=== PATIENT | female | born 1970 | race Two or more races ===

== ENCOUNTER 2016-08-21 13:33 | Inpatient (IN) | payer OTHER ==
[2016-08-21 14:33] LABS: Urine Bacteria Absent (Absent); Urine Bilirubin Negative (Negative); Urine Glucose Negative (Negative); Urine Nitrite Negative (Negative)
[2016-08-21 14:38] LABS: Benzodiazepine Urine Screen None Detected (None Detect)
[2016-08-21] MEDS ORDERED: Gabapentin CAP(*) 300 MG PO ONE (14:57)
[2016-08-21 15:07] LABS: Hematocrit 39 % (35-47); Hemoglobin 12.7 g/dl (12.0-16.0); Mean Corpuscular HGB Conc 33 g/dl (31-36); Mean Corpuscular Hemoglobin 27 pg (27-31); Mean Corpuscular Volume 84 fL (80-97); Mean Platelet Volume 9 um3 (7.4-10.4); Red Blood Count 4.62 10^6/ul (4.0-5.4); Red Cell Distribution Width 15 % (10.5-15); White Blood Count 7.7 10^3/ul (3.5-10.8)
[2016-08-21 15:18] LABS: ALT 8 U/L (7-52); AST 13 U/L (13-39); Albumin 4.2 g/dL (3.2-5.2); Alkaline Phosphatase 82 U/L (34-104); Anion Gap 8 mmol/L (2-11); Blood Urea Nitrogen 9 mg/dL (6-24); CO2 Carbon Dioxide 28 mmol/L (22-32); Calcium 9.1 mg/dL (8.6-10.3); Chloride 101 mmol/L (101-111); EGFR Non-African American 75.4 (>60); Glucose 127 mg/dL (70-100); Potassium 3.1 mmol/L (3.5-5.0); Sodium 137 mmol/L (133-145); Total Protein 7.2 g/dL (6.4-8.9)
[2016-08-21 16:08] LABS: Acetaminophen < 15 mcg/mL; Alcohol < 10 mg/dL (<10); Salicylate < 2.50 mg/dL (<30)
[2016-08-21 16:10] LABS: TSH (Thyroid Stimulating Horm) 0.56 mcIU/mL (0.34-5.60)
[2016-08-21] MEDS ORDERED: Potassium Chlor TAB* 20 MEQ TAB.ER PO ONE ×2 (16:50→21:00)
[2016-08-21] MEDS ORDERED: Al Hydrox/Mg Hydrox/Simet LIQ* 30 ML UDC PO PRN (17:09)
--- NOTE | 2016-08-21 18:19 | ED ---
Tavon Wynn Aidan, scribed for Bony Soriano MD on 08/21/16 at 1412 . Psychiatric Complaint - HPI Summary HPI Summary: 46 y/o female presents to the ED with a complaint of acute, moderate episodes of visual and auditory hallucinations that began 2 weeks ago. She has intermittent episodes of hearing and seeing a man who tells her to cut herself in very specific ways. Additionally, she sees and hears a small crying girl. Associated symptoms include SI and razor cuts to the face that were self- induced. She denies any HI and claims to be taking her medications regularly. Several months ago, she lost her job and recently has had several deaths in her family. 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 Denies: With A Plan, Demonstrates Gesture, Has Prior Attempt(s) Has Homicidal: Denies: Thoughts, With A Plan, Demonstrates Gesture, Has Prior Attempt(s) Recent Stressor(s): lost job and recent family loss - Allergies/Home Medications Allergies/Adverse Reactions: Allergies Allergy/AdvReac Type Severity Reaction Status Date / Time Penicillins Allergy Severe throat Verified 06/27/15 20:11 swells up PMH/Surg Hx/FS Hx/Imm Hx Endocrine/Hematology History: Denies: Hx Anticoagulant Therapy, Hx Diabetes, Hx Thyroid Disease Cardiovascular History: Reports: Hx Hypercholesterolemia Denies: Hx Hypertension, Hx Pacemaker/ICD Respiratory History: Reports: Hx Asthma Denies: Hx Chronic Obstructive Pulmonary Disease (COPD) GI History: Reports: Other GI Disorders - UC in remission per patient History: Denies: Hx Renal Disease Musculoskeletal History: Reports: Hx 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, Other Musculoskeletal History - degenerative disease lower spine,sciatic, OSTEOPOROSIS Denies: Hx Scoliosis Sensory History: Reports: Hx Contacts or Glasses - glasses inst given Denies: Hx Hearing Aid Opthamlomology History: Reports: Hx Contacts or Glasses - glasses inst given Neurological History: Reports: Other Neuro Impairments/Disorders - h/o pituitary tumor Denies: Hx Dementia, Hx Headaches, Hx Seizures Psychiatric History: Reports: Hx Depression Denies: Hx Eating Disorder, Hx Panic Disorder, Hx of Violent Episodes Against Others, Hx Substance Abuse - Cancer History Cancer Type, Location and Year: chronic back pain, cholitis, osteoperosis - Surgical History Surgery Procedure, Year, and Place: 1996 TUBAL. 2000 PITUATARY GLAND MASS REMOVED [place]. 07/2012 LEFT SHOULDER SURGERY Hx Anesthesia Reactions: No Infectious Disease History: Denies: Hx Hepatitis, Hx Human Immunodeficiency Virus (HIV), Traveled Outside the in Last 30 Days - Family History Known Family History: Positive: Other - "my aunt committed suicide" - Social History Occupation: Employed Full-time Lives: Alone Alcohol Use: Weekly - 2-3 bottles of wine per week Hx Substance Use: No Substance Use Type: Reports: None Hx Tobacco Use: No Smoking Status (MU): Never Smoked Tobacco Review of Systems Constitutional: Negative Eyes: Negative ENT: Negative Cardiovascular: Negative Respiratory: Negative Gastrointestinal: Negative Genitourinary: Negative Musculoskeletal: Negative Skin: Negative Neurological: Other - hallucinations Negative: Headache, Weakness, Paresthesia, Numbness, Syncope, Slurred Speech Positive: Depressed. Negative: Anxious All Other Systems Reviewed And Are Negative: Yes Physical Exam - Summary Physical Exam Summary: VITAL SIGNS: Reviewed. GENERAL: Patient is a well-developed and nourished (FEMALE) who is lying comfortable in the stretcher. Patient is not in any acute respiratory distress. HEAD AND FACE: No signs of trauma. No ecchymosis, hematomas or skull depressions. No sinus tenderness. EYES: PERRLA, EOMI x 2, No injected conjunctiva, no nystagmus. EARS: Hearing grossly intact. Ear canals and tympanic membranes are within normal limits. MOUTH: Oropharynx within normal limits. NECK: Supple, trachea is midline, no adenopathy, no JVD, no carotid bruit, no c- spine tenderness, neck with full ROM. CHEST: Symmetric, no tenderness at palpation LUNGS: Clear to auscultation bilaterally. No wheezing or crackles. CVS: Regular rate and rhythm, S1 and S2 present, no murmurs or gallops appreciated. ABDOMEN: Soft, non-tender. No signs of distention. No rebound no guarding, and no masses palpated. Bowel sounds are normal. EXTREMITIES: FROM in all major joints, no edema, no cyanosis or clubbing. NEURO: Alert and oriented x 3. No acute neurological deficits. Speech is normal and follows commands. SKIN: Dry and warm PSYCH: Pt looks depressed. Triage Information Reviewed: Yes Vital Signs On Initial Exam: Initial Vitals Temp Pulse Resp BP Pulse Ox 97.8 F 126 20 120/93 98 08/21/16 13:36 08/21/16 13:36 08/21/16 13:36 08/21/16 13:36 08/21/16 13:36 Vital Signs Reviewed: Yes Diagnostics - Vital Signs Vital Signs Temp Pulse Resp BP Pulse Ox 08/21/16 13:36 97.8 F 126 20 120/93 98 - Laboratory Lab Results: Lab Results 08/21/16 08/21/16 08/21/16 Range/Units 14:00 14:01 14:49 WBC 7.7 (3.5-10.8) 10^3/ul RBC 4.62 (4.0-5.4) 10^6/ul Hgb 12.7 (12.0-16.0) g/dl Hct 39 (35-47) % MCV 84 (80-97) fL MCH 27 (27-31) pg MCHC 33 (31-36) g/dl RDW 15 (10.5-15) % Plt Count 234 (150-450) 10^3/ul MPV 9 (7.4-10.4) um3 Neut % (Auto) 80.8 (38-83) % Lymph % (Auto) 13.5 L (25-47) % Hawkins % (Auto) 3.7 (1-9) % Eos % (Auto) 1.7 (0-6) % Baso % (Auto) 0.3 (0-2) % Absolute Neuts (auto) 6.2 (1.5-7.7) 10^3/ul Absolute Lymphs (auto) 1.0 (1.0-4.8) 10^3/ul Absolute Monos (auto) 0.3 (0-0.8) 10^3/ul Absolute Eos (auto) 0.1 (0-0.6) 10^3/ul Absolute Basos (auto) 0 (0-0.2) 10^3/ul Absolute Nucleated RBC 0 10^3/ul Nucleated RBC % 0 Sodium (133-145) mmol/L Potassium (3.5-5.0) mmol/L Chloride (101-111) mmol/L Carbon Dioxide (22-32) mmol/L Anion Gap (2-11) mmol/L BUN (6-24) mg/dL Creatinine (0.51-0.95) mg/dL Est GFR ( Amer) (>60) Est GFR (Non-Af Amer) (>60) BUN/Creatinine Ratio (8-20) Glucose (70-100) mg/dL Calcium (8.6-10.3) mg/dL Total Bilirubin (0.2-1.0) mg/dL AST (13-39) U/L ALT (7-52) U/L Alkaline Phosphatase (34-104) U/L Total Protein (6.4-8.9) g/dL Albumin (3.2-5.2) g/dL Globulin (2-4) g/dL Albumin/Globulin Ratio (1-3) TSH (0.34-5.60) mcIU/mL Urine Color Yellow Urine Appearance Clear Urine pH 5.0 (5-9) Ur Specific [place] 1.010 (1.010-1.030) Urine Protein Negative (Negative) Urine Ketones Negative (Negative) Urine Blood Negative (Negative) Urine Nitrate Negative (Negative) Urine Bilirubin Negative (Negative) Urine Urobilinogen Negative (Negative) Ur Leukocyte Esterase 1+ H (Negative) Urine WBC (Auto) Trace(0-5/hpf) (Absent) Urine RBC (Auto) Absent (Absent) Ur Squamous Epith Cells Present H (Absent) Urine Bacteria Absent (Absent) Urine Glucose Negative (Negative) Urine Ascorbic Acid * H (Negative) Salicylates (<30) mg/dL Urine Opiates Screen None detected (None Detect) Acetaminophen mcg/mL Ur Barbiturates Screen None detected (None Detect) Ur Phencyclidine Scrn None detected (None Detect) Ur Amphetamines Screen None detected (None Detect) U Benzodiazepines Scrn None detected (None Detect) Urine Cocaine Screen None detected (None Detect) U Cannabinoids Screen None detected (None Detect) Serum Alcohol (<10) mg/dL 08/21/16 Range/Units 14:49 WBC (3.5-10.8) 10^3/ul RBC (4.0-5.4) 10^6/ul Hgb (12.0-16.0) g/dl Hct (35-47) % MCV (80-97) fL MCH (27-31) pg MCHC (31-36) g/dl RDW (10.5-15) % Plt Count (150-450) 10^3/ul MPV (7.4-10.4) um3 Neut % (Auto) (38-83) % Lymph % (Auto) (25-47) % Hawkins % (Auto) (1-9) % Eos % (Auto) (0-6) % Baso % (Auto) (0-2) % Absolute Neuts (auto) (1.5-7.7) 10^3/ul Absolute Lymphs (auto) (1.0-4.8) 10^3/ul Absolute Monos (auto) (0-0.8) 10^3/ul Absolute Eos (auto) (0-0.6) 10^3/ul Absolute Basos (auto) (0-0.2) 10^3/ul Absolute Nucleated RBC 10^3/ul Nucleated RBC % Sodium 137 (133-145) mmol/L Potassium 3.1 L (3.5-5.0) mmol/L Chloride 101 (101-111) mmol/L Carbon Dioxide 28 (22-32) mmol/L Anion Gap 8 (2-11) mmol/L BUN 9 (6-24) mg/dL Creatinine 0.82 (0.51-0.95) mg/dL Est GFR ( Amer) 97.0 (>60) Est GFR (Non-Af Amer) 75.4 (>60) BUN/Creatinine Ratio 11.0 (8-20) Glucose 127 H (70-100) mg/dL Calcium 9.1 (8.6-10.3) mg/dL Total Bilirubin 0.30 (0.2-1.0) mg/dL AST 13 (13-39) U/L ALT 8 (7-52) U/L Alkaline Phosphatase 82 (34-104) U/L Total Protein 7.2 (6.4-8.9) g/dL Albumin 4.2 (3.2-5.2) g/dL Globulin 3.0 (2-4) g/dL Albumin/Globulin Ratio 1.4 (1-3) TSH 0.56 (0.34-5.60) mcIU/mL Urine Color Urine Appearance Urine pH (5-9) Ur Specific [place] (1.010-1.030) Urine Protein (Negative) Urine Ketones (Negative) Urine Blood (Negative) Urine Nitrate (Negative) Urine Bilirubin (Negative) Urine Urobilinogen (Negative) Ur Leukocyte Esterase (Negative) Urine WBC (Auto) (Absent) Urine RBC (Auto) (Absent) Ur Squamous Epith Cells (Absent) Urine Bacteria (Absent) Urine Glucose (Negative) Urine Ascorbic Acid (Negative) Salicylates < 2.50 (<30) mg/dL Urine Opiates Screen (None Detect) Acetaminophen < 15 mcg/mL Ur Barbiturates Screen (None Detect) Ur Phencyclidine Scrn (None Detect) Ur Amphetamines Screen (None Detect) U Benzodiazepines Scrn (None Detect) Urine Cocaine Screen (None Detect) U Cannabinoids Screen (None Detect) Serum Alcohol < 10 (<10) mg/dL Result Diagrams: 08/21/16 14:49 08/21/16 14:49 Lab Statement: Any lab studies that have been ordered have been reviewed, and results considered in the medical decision making process. Course/Dx - Course Course Of Treatment: 46 y/o female presents to the ED with a complaint of acute , moderate episodes of visual and auditory hallucinations that began 2 weeks ago. She has intermittent episodes of hearing and seeing a man who tells her to cut herself in very specific ways. Additionally, she sees and hears a small crying girl. Associated symptoms include SI and razor cuts to the face that were self-induced. She denies any HI and claims to be taking her medications regularly. Several months ago, she lost her job and recently has had several deaths in her family. All blood work WNL except for hypokalemia. She was given one dose of hypokalemia. She is medically cleared. She is awaiting for a MHE. Patient is hemodynamically stable and A+O x 3. Dr. Le (Psychiatry) saw and examined the patient and clear the patient and recommends admission to his serices. - Differential Dx/Clinical Impression Differential Diagnosis/HQI/PQRI: Positive: Depression, Suicidal Ideation Provider Diagnosis: Depression Discharge - Discharge Plan Condition: Fair Disposition: ADMITTED TO [facility] Referrals: Uriel Montejo MD [Primary Care Provider] - The documentation as recorded by the Tavon iqbal Aidan accurately reflects the service I personally performed and the decisions made by me, Bony Soriano MD.
[2016-08-21] MEDS: Gabapentin CAP(*) 300 MG PO SCH (20:10)
[2016-08-21] MEDS ORDERED: QUEtiapine TAB* 100 MG PO SCH (21:00)
[2016-08-22] MEDS: azaTHIOprine TAB(*) 50 MG TAB PO SCH ×2 (08:56→09:00)
[2016-08-22] MEDS: PARoxetine HCL TAB* 40 MG PO SCH (08:57)
[2016-08-22] MEDS: Gabapentin CAP(*) 300 MG PO SCH ×3 (08:57→20:32)
[2016-08-22] MEDS: Vitamin THERAPEUTIC TAB PO SCH (08:58)
[2016-08-22] MEDS: BuPROPion XL* 300 MG TAB.XL PO SCH (08:58)
[2016-08-22] MEDS: Acetaminophen TAB* 325 MG PO PRN (09:34)
[2016-08-22] MEDS ORDERED: Potassium Chlor TAB* 10 MEQ TAB.ER PO ONE (12:58)
--- NOTE | 2016-08-22 13:07 | PN ---
[facility]: Group Therapy Note - Service Type Service Type: 93130 Group Psychotherapy - Cognitive Behavioral Group Therapy ( CBT):Patient was attentive and participatory in CBT programming this morning, and remained in good behavioral control. Patient expressed positive insights regarding relevant treatment interventions and goals.
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
[2016-08-22] MEDS ORDERED: risperiDONE TAB* 1 MG PO SCH (21:00)
[2016-08-23] MEDS: Albuterol HFA INHALER* 8 gm MDI INH PRN ×2 (07:20→16:13)
[2016-08-23] MEDS: PARoxetine HCL TAB* 40 MG PO SCH (08:05)
[2016-08-23] MEDS: Gabapentin CAP(*) 300 MG PO SCH ×3 (08:05→21:17)
[2016-08-23] MEDS: BuPROPion XL* 300 MG TAB.XL PO SCH (08:06)
[2016-08-23] MEDS: Vitamin THERAPEUTIC TAB PO SCH (08:06)
[2016-08-23 08:28] LABS: BUN/Creatinine Ratio 14.9 (8-20); Calcium 9.4 mg/dL (8.6-10.3); EGFR African American 90.6 (>60); EGFR Non-African American 70.4 (>60); HDL Cholesterol 42.6 mg/dL; Potassium 4.1 mmol/L (3.5-5.0)
[2016-08-23] MEDS: azaTHIOprine TAB(*) 50 MG TAB PO SCH (10:37)
[2016-08-23] MEDS ORDERED: Albuterol HFA INHALER* 8 gm MDI INH PRN (15:55)
[2016-08-23] MEDS ORDERED: risperiDONE TAB* 1 MG PO ONE (16:00)
--- NOTE | 2016-08-23 16:11 | PN ---
Subjective - Subjective Service Type: 77983 Hosp care 15 min low complexity Subjective: Patient reports waking this morning noting decreased intensity of AHs. She reported though after eating lunch noticing the intensity returned to level at admission. Patient reports use of journaling, distracting attention using a stress ball, and talking with staff during groups and in the milieu as coping mechanisms. Patient amenable to a onetime dose of Risperdal 1mg po this afternoon and to increasing her qhs Risperdal dose from 1mg to 3mg. Patient reports no med s/e's. Patient reports the male voice continues to make derogatory comments and continues to be commanding. She became tearful describing an ongoing sense that this male prescense is hovering over her. She reports ongoing VHs of a female child who patient reports is always seated to her left near her feet on the floor. She reports AHs hearing the child crying which continues to be distressing to the point she must retreat to her room as she doesn't want to upset her peers in the milieu. Patient reports no thoughts to self-injure. She denies SI/HI. Objective - Appearance Appearance: Well Developed/Nourished Dysmorphic Features: No Hygiene: Normal Grooming: Well Kept - Behavior Psychomotor Activities: Normal Exhibits Abnormal Movement: No - Attitude and Relatedness Attitude and Relatedness: Cooperative Eye Contact: Good - Speech Quality: Unpressured Latencies: Normal Quantity: Appropriate - Mood Patient's Decription of Mood: "Sad" - Affect Observed Affect: Labile Affect Consistent with: Dysphoria - Thought Process Patient's Thought Process: Coherent Thought Content: No Passive Wish, No Suicidal Planning, No Homicidal Ideation, No Paranoid Ideation - Sensorium Experiencing Hallucinations: Yes Type of Hallucinations: Visual: Yes, Auditory: Yes, Command: Yes - Level of Consciousness Level of Consciousness: Alert Orientation: Yes Intact, Yes Orientated to Time, Yes Orientated to Place, Yes Orientated to Person - Impulse Control Impulse Control: Intact - Insight and Judgement Insight and Judgement: Fair - Group Participation Particating in Group Activities: Yes - Medication Management Medication Management Adherence: Yes Assessment - Assessment Merits Inpatient Hospitalization: For Immediate Safety, For Stabilization Inpatient DSM-IV Dx: . 1. Brief psychotic d/o with marked stressors. 2. Persistent Depressive d/o with atypical features. 3. Borderline personality d/o Clinical Impression: 46yo female patient with recurrence of intense and distressing commanding AHs and new VHs x 2wks. Patient cut her face multiple times with a razor at the command of the male voice she hears. Patient has recent stressors including the loss of 2 family members, one by suicide, and the loss of her job 2 weeks ago. Patient amenable to med modification and has been med compliant on the unit Plan - Plan Treatment Plan: Name: MARIEL ARMAS Birthdate: 1970 [id number] 1. Continue admission to [facility] for safety and symptom mx. 2. Continue Wellbutrin 300mg po qam for depressive symptoms. 3. Continue Paxil 50mg po qam for mood / anxiety. 4. Seroquel discontinued. 5. Increase Risperdal from 1mg to 3mg po qhs for psychosis / mood augmentation. Monitor at this dose over the weekend and reasses. 6. Continue to compile collateral information from [facility] and PCP([facility]). 7. Patient to participate in milieu activities and groups. Medications: Current Medications Acetaminophen (Tylenol Tab*) 650 mg PO Q4H PRN PRN Reason: PAIN or TEMP > 101 F Last Admin: 08/22/16 09:34 Dose: 650 mg Al Hydrox/Mg Hydrox/Simethicone (Maalox Plus*) 30 ml PO Q4H PRN PRN Reason: INDIGESTION Albuterol (Ventolin Hfa Inhaler*) 2 puff INH Q4H PRN PRN Reason: WHEEZING/SOB Last Admin: 08/23/16 07:20 Dose: 2 puff Azathioprine (Imuran Tab(*)) 75 mg PO DAILY [facility] Last Admin: 08/23/16 10:37 Dose: 75 mg Bupropion HCl (Bupropion Xl*) 300 mg PO DAILY [facility] Last Admin: 08/23/16 08:06 Dose: 300 mg Gabapentin (Neurontin Cap(*)) 300 mg PO TID [facility] Last Admin: 08/23/16 12:56 Dose: 300 mg Mometasone Furoate/Formoterol Fumar (Dulera 200/5 Mdi*) 2 puff INH BID [facility] Multivitamins (Theragran Tab*) 1 tab PO DAILY [facility] Last Admin: 08/23/16 08:06 Dose: 1 tab Paroxetine HCl (Paxil Tab*) 40 mg PO DAILY [facility] Last Admin: 08/23/16 08:05 Dose: 40 mg Risperidone (Risperdal*) 1 mg PO ONCE ONE Stop: 08/23/16 16:01 Risperidone (Risperdal*) 3 mg PO BEDTIME [facility] - Discharge Plan Discharge Plan: Outpatient Follow Up Outpatient Program: [facility]
[2016-08-23] MEDS: Mometasone/Formoter 200/5 MDI INH SCH ×2 (16:12→21:17)
[2016-08-23] MEDS: risperiDONE TAB* 3 MG PO SCH (21:17)
[2016-08-24] MEDS: Mometasone/Formoter 200/5 MDI INH SCH ×2 (08:20→20:28)
[2016-08-24] MEDS: azaTHIOprine TAB(*) 50 MG TAB PO SCH (08:22)
[2016-08-24] MEDS: Gabapentin CAP(*) 300 MG PO SCH ×3 (08:23→20:29)
[2016-08-24] MEDS: PARoxetine HCL TAB* 40 MG PO SCH (08:23)
[2016-08-24] MEDS: BuPROPion XL* 300 MG TAB.XL PO SCH (08:24)
[2016-08-24] MEDS: Vitamin THERAPEUTIC TAB PO SCH (08:24)
[2016-08-24] MEDS: risperiDONE TAB* 3 MG PO SCH (20:29)
[2016-08-25] MEDS: azaTHIOprine TAB(*) 50 MG TAB PO SCH (08:29)
[2016-08-25] MEDS: Mometasone/Formoter 200/5 MDI INH SCH ×2 (08:29→20:18)
[2016-08-25] MEDS: Vitamin THERAPEUTIC TAB PO SCH (08:30)
[2016-08-25] MEDS: PARoxetine HCL TAB* 40 MG PO SCH (08:30)
[2016-08-25] MEDS: BuPROPion XL* 300 MG TAB.XL PO SCH (08:31)
[2016-08-25] MEDS: Gabapentin CAP(*) 300 MG PO SCH ×3 (08:31→20:18)
--- NOTE | 2016-08-25 11:21 | PN ---
Subjective - Subjective Service Type: 82136 Hosp care 15 min low complexity Subjective: Judy is seen for weekend coverage and presents as calm, polite and cooperative. She notes that the introduction of risperidone has been very helpful in minimizing her AH but she does not side effects of "heavy eyelids and trouble seeing clearly." She denies SI and had a nice visit from her family last evening. She is requesting privileges here on the unit. Objective - Appearance Appearance: Well Developed/Nourished Dysmorphic Features: No Hygiene: Normal Grooming: Well Kept - Behavior Psychomotor Activities: Normal Exhibits Abnormal Movement: No - Attitude and Relatedness Attitude and Relatedness: Cooperative Eye Contact: Good - Speech Quality: Unpressured Latencies: Normal Quantity: Appropriate - Mood Patient's Decription of Mood: "Okay" - Affect Observed Affect: Fair Affect Consistent with: Euthymia - Thought Process Patient's Thought Process: Coherent Thought Content: No Passive Wish, No Suicidal Planning, No Homicidal Ideation, No Paranoid Ideation - Sensorium Experiencing Hallucinations: Yes Type of Hallucinations: Visual: No, Auditory: Yes, Command: No - Level of Consciousness Level of Consciousness: Alert Orientation: Yes Intact, Yes Orientated to Time, Yes Orientated to Place, Yes Orientated to Person - Impulse Control Impulse Control: Intact - Insight and Judgement Insight and Judgement: Good - Group Participation Particating in Group Activities: Yes - Medication Management Medication Management Adherence: Yes Assessment - Assessment Merits Inpatient Hospitalization: For Immediate Safety, For Stabilization Inpatient DSM-IV Dx: . 1. Brief psychotic d/o with marked stressors. 2. Persistent Depressive d/o with atypical features. 3. Borderline personality d/o Clinical Impression: 46 y.o. female with a history of affective and psychotic illness presenting voluntarily to [facility] with complaints of command AH telling her to cut herself, which was partially acting on, prior to admission. Plan - Plan Treatment Plan: Name: JUDY ARMAS Birthdate: 1970 [id number] The patient's outpatient regimen of gabapentin, paroxetine and bupropion XL has been continued and a trial of risperidone 3mg PO qhs was added for hallucinations. The patient has shown some signs of improvement but side effects to risperidone should be monitored. Continue to treat on inpatient basis. Continued Medication Management: Start Medication Medications: Current Medications Acetaminophen (Tylenol Tab*) 650 mg PO Q4H PRN PRN Reason: PAIN or TEMP > 101 F Last Admin: 08/22/16 09:34 Dose: 650 mg Al Hydrox/Mg Hydrox/Simethicone (Maalox Plus*) 30 ml PO Q4H PRN PRN Reason: INDIGESTION Albuterol (Ventolin Hfa Inhaler*) 2 puff INH Q4H PRN PRN Reason: WHEEZING/SOB Last Admin: 08/23/16 16:13 Dose: 2 puff Azathioprine (Imuran Tab(*)) 75 mg PO DAILY [facility] Last Admin: 08/25/16 08:29 Dose: 75 mg Bupropion HCl (Bupropion Xl*) 300 mg PO DAILY [facility] Last Admin: 08/25/16 08:31 Dose: 300 mg Gabapentin (Neurontin Cap(*)) 300 mg PO TID [facility] Last Admin: 08/25/16 08:31 Dose: 300 mg Mometasone Furoate/Formoterol Fumar (Dulera 200/5 Mdi*) 2 puff INH BID [facility] Last Admin: 08/25/16 08:29 Dose: 2 puff Multivitamins (Theragran Tab*) 1 tab PO DAILY [facility] Last Admin: 08/25/16 08:30 Dose: 1 tab Paroxetine HCl (Paxil Tab*) 40 mg PO DAILY [facility] Last Admin: 08/25/16 08:30 Dose: 40 mg Risperidone (Risperdal*) 3 mg PO BEDTIME [facility] Last Admin: 08/24/16 20:29 Dose: 3 mg - Discharge Plan Discharge Plan: Inpatient Hospitalization
[2016-08-25] MEDS: risperiDONE TAB* 3 MG PO SCH (20:18)
[2016-08-26] MEDS: azaTHIOprine TAB(*) 50 MG TAB PO SCH (09:05)
[2016-08-26] MEDS: Vitamin THERAPEUTIC TAB PO SCH (09:06)
[2016-08-26] MEDS: Gabapentin CAP(*) 300 MG PO SCH ×3 (09:07→20:14)
[2016-08-26] MEDS: BuPROPion XL* 300 MG TAB.XL PO SCH (09:07)
[2016-08-26] MEDS: Mometasone/Formoter 200/5 MDI INH SCH ×2 (09:08→20:16)
[2016-08-26] MEDS: PARoxetine HCL TAB* 40 MG PO SCH (09:11)
[2016-08-26] MEDS: Albuterol HFA INHALER* 8 gm MDI INH PRN ×2 (12:04→17:56)
--- NOTE | 2016-08-26 13:05 | PN ---
MHU: Group Therapy Note - Service Type Service Type: [id number] Group Psychotherapy - Cognitive Behavioral Group Therapy ( CBT):Patient was attentive and participatory in CBT programming this morning, and remained in good behavioral control. Patient expressed positive insights regarding relevant treatment interventions and goals.
[2016-08-26] MEDS: Acetaminophen TAB* 325 MG PO PRN (13:08)
--- NOTE | 2016-08-26 16:43 | PN ---
Subjective - Subjective Service Type: [id number] Hosp care 15 min low complexity Subjective: Patient noted to be engaged in weekend activities in the milieu. Patient reporting med compliance. She reports no hallucinations over last 48hrs. Patient reports sedation that continues in the morning from the qhs Risperdal dose. She in amenable to continue after education the sedation s/e resolves for many after the body adjusts to the new med. Patient also reports neck pain and sensation of muscle tension in her forehead. Patient informed this may be a manifestation of EPS. Patient gives informed consent to start Cogentin 1mg po qhs for eps. Patient initiates dialogue regarding discharge planning. She reports her father has offered for her to stay with he and her step-mom after discharge. Father has been very supportive. Patient also reports she will need SW to schedule appt with [facility] therapist, Preethi Ron and her newly assigned psychiatrist, as patient reports she last saw Dr. Schulz, who has since left [facility]. Patient also reports she awaiting the start of CBT classes , start date 09/11/16. She was already enrolled by Preethi Ron. Objective - Appearance Appearance: Well Developed/Nourished Dysmorphic Features: No Hygiene: Normal Grooming: Well Kept - Behavior Psychomotor Activities: Normal Exhibits Abnormal Movement: No - Attitude and Relatedness Attitude and Relatedness: Cooperative Eye Contact: Good - Speech Quality: Unpressured Latencies: Normal Quantity: Appropriate - Mood Patient's Decription of Mood: "Okay" - Affect Observed Affect: Fair Affect Consistent with: Euthymia - Thought Process Patient's Thought Process: Coherent Thought Content: No Passive Wish, No Suicidal Planning, No Homicidal Ideation, No Paranoid Ideation - Sensorium Experiencing Hallucinations: No, Sensorium is Clear Type of Hallucinations: Visual: No, Auditory: No, Command: No - Level of Consciousness Level of Consciousness: Alert Orientation: Yes Intact, Yes Orientated to Time, Yes Orientated to Place, Yes Orientated to Person - Impulse Control Impulse Control: Intact - Insight and Judgement Insight and Judgement: Good - Group Participation Particating in Group Activities: Yes - Medication Management Medication Management Adherence: Yes Assessment - Assessment Merits Inpatient Hospitalization: For Stabilization Inpatient DSM-IV Dx: . 1. Brief psychotic d/o with marked stressors. 2. Persistent Depressive d/o with atypical features. 3. Borderline personality d/o Clinical Impression: 46yo female patient with recurrence of intense and distressing commanding AHs and new VHs x 2wks. Patient cut her face multiple times with a razor at the command of the male voice she hears. Patient has recent stressors including the loss of 2 family members, one by suicide, and the loss of her job 2 weeks ago. Patient amenable to med modification and has been med compliant on the unit Plan - Plan Treatment Plan: Name: MARIEL ARMAS Birthdate: 1970 [id number] 1. Continue admission to [facility] for safety and symptom mx. 2. Continue Wellbutrin 300mg po qam for depressive symptoms. 3. Continue Paxil 50mg po qam for mood / anxiety. 4. Seroquel discontinued. 5. Continue Risperdal 3mg po qhs for psychosis / mood augmentation. 6. Initiate discharge planning(PCP / [facility]) 7. Patient to participate in milieu activities and groups. Medications: Current Medications Acetaminophen (Tylenol Tab*) 650 mg PO Q4H PRN PRN Reason: PAIN or TEMP > 101 F Last Admin: 08/26/16 13:08 Dose: 650 mg Al Hydrox/Mg Hydrox/Simethicone (Maalox Plus*) 30 ml PO Q4H PRN PRN Reason: INDIGESTION Albuterol (Ventolin Hfa Inhaler*) 2 puff INH Q4H PRN PRN Reason: WHEEZING/SOB Last Admin: 08/26/16 12:04 Dose: 2 puff Azathioprine (Imuran Tab(*)) 75 mg PO DAILY [facility] Last Admin: 08/26/16 09:05 Dose: 75 mg Benztropine Mesylate (Cogentin Tab*) 1 mg PO BEDTIME [facility] Bupropion HCl (Bupropion Xl*) 300 mg PO DAILY [facility] Last Admin: 08/26/16 09:07 Dose: 300 mg Gabapentin (Neurontin Cap(*)) 300 mg PO TID [facility] Last Admin: 08/26/16 13:05 Dose: 300 mg Mometasone Furoate/Formoterol Fumar (Dulera 200/5 Mdi*) 2 puff INH BID [facility] Last Admin: 08/26/16 09:08 Dose: 2 puff Multivitamins (Theragran Tab*) 1 tab PO DAILY [facility] Last Admin: 08/26/16 09:06 Dose: 1 tab Paroxetine HCl (Paxil Tab*) 40 mg PO DAILY [facility] Last Admin: 08/26/16 09:11 Dose: 40 mg Risperidone (Risperdal*) 3 mg PO BEDTIME [facility] Last Admin: 08/25/16 20:18 Dose: 3 mg - Discharge Plan Discharge Plan: Outpatient Follow Up Outpatient Program: [facility]
[2016-08-26] MEDS: risperiDONE TAB* 3 MG PO SCH (20:14)
[2016-08-26] MEDS: Benztropine TAB* 1 MG PO SCH (20:15)
[2016-08-27] MEDS: Mometasone/Formoter 200/5 MDI INH SCH ×3 (06:45→21:16)
[2016-08-27] MEDS: Vitamin THERAPEUTIC TAB PO SCH (08:29)
[2016-08-27] MEDS: Gabapentin CAP(*) 300 MG PO SCH ×3 (08:29→21:00)
[2016-08-27] MEDS: azaTHIOprine TAB(*) 50 MG TAB PO SCH (08:29)
[2016-08-27] MEDS: BuPROPion XL* 300 MG TAB.XL PO SCH (08:30)
[2016-08-27] MEDS: PARoxetine HCL TAB* 40 MG PO SCH (08:30)
--- NOTE | 2016-08-27 11:46 | PN ---
MHU: Group Therapy Note - Service Type Service Type: [id number] Group Psychotherapy - Cognitive Behavioral Group Therapy ( CBT):Patient was attentive and participatory in CBT programming this morning, and remained in good behavioral control. Patient expressed positive insights regarding relevant treatment interventions and goals.
[2016-08-27] MEDS: Albuterol HFA INHALER* 8 gm MDI INH PRN (13:07)
[2016-08-27] MEDS: Acetaminophen TAB* 325 MG PO PRN ×2 (17:02→21:36)
--- NOTE | 2016-08-27 19:02 | PN ---
Subjective - Subjective Service Type: 02309 Hosp care 15 min low complexity Subjective: Patient continues to be social, engaged in milieu activities and noted to have good participation in groups. Patient reports her mood as "okay". She reports some anxiety in regard to leaving the controlled environment of the unit to her home life. Patient reports conflicts with her son as the only stressor she foresees. Patient reports her father has opened his home to her for the days just after discharge. She reports again today no SI/HI, no thoughts to self injure, and no AH/VH. Patient is med compliant and denies s/e's. Neck muscle stiffness is not noticed today. Cogentin was started last night, 1mg po qhs. Patient reports sleep and appetite are wnl. She reports feeling stable for discharge. Tentative discharge tomorrow. Patient reports her father will be to the unit by 5pm to transport her to his home. Objective - Appearance Appearance: Well Developed/Nourished Dysmorphic Features: No Hygiene: Normal Grooming: Well Kept - Behavior Psychomotor Activities: Normal Exhibits Abnormal Movement: No - Attitude and Relatedness Attitude and Relatedness: Cooperative Eye Contact: Good - Speech Quality: Unpressured Latencies: Normal Quantity: Appropriate - Mood Patient's Decription of Mood: "Okay" - Affect Observed Affect: Fair Affect Consistent with: Euthymia - Thought Process Patient's Thought Process: Coherent Thought Content: No Passive Wish, No Suicidal Planning, No Homicidal Ideation, No Paranoid Ideation - Sensorium Experiencing Hallucinations: No, Sensorium is Clear Type of Hallucinations: Visual: No, Auditory: No, Command: No - Level of Consciousness Level of Consciousness: Alert Orientation: Yes Intact, Yes Orientated to Time, Yes Orientated to Place, Yes Orientated to Person - Insight and Judgement Insight and Judgement: Good - Group Participation Particating in Group Activities: Yes - Medication Management Medication Management Adherence: Yes Assessment - Assessment Merits Inpatient Hospitalization: For Immediate Safety, For Stabilization Inpatient DSM-IV Dx: . 1. Brief psychotic d/o with marked stressors. 2. Persistent Depressive d/o with atypical features. 3. Borderline personality d/o Clinical Impression: 46yo female patient with recurrence of intense and distressing commanding AHs and new VHs x 2wks. Patient cut her face multiple times with a razor at the command of the male voice she hears. Patient has recent stressors including the loss of 2 family members, one by suicide, and the loss of her job 2 weeks ago. Patient amenable to med modification and has been med compliant on the unit. Plan - Plan Treatment Plan: Name: MARIEL ARMAS Birthdate: 1970 [id number] 1. Continue admission to [facility] for safety and symptom mx. 2. Continue Wellbutrin 300mg po qam for depressive symptoms. 3. Continue Paxil 50mg po qam for mood / anxiety. 4. Seroquel discontinued. 5. Continue Risperdal 3mg po qhs for psychosis / mood augmentation. 6. Continue Cogentin 1mg po qhs for eps. 7. Initiate discharge planning(PCP / [facility]) 8. Patient to participate in milieu activities and groups. Medications: Current Medications Acetaminophen (Tylenol Tab*) 650 mg PO Q4H PRN PRN Reason: PAIN or TEMP > 101 F Last Admin: 08/27/16 17:02 Dose: 650 mg Al Hydrox/Mg Hydrox/Simethicone (Maalox Plus*) 30 ml PO Q4H PRN PRN Reason: INDIGESTION Albuterol (Ventolin Hfa Inhaler*) 2 puff INH Q4H PRN PRN Reason: WHEEZING/SOB Last Admin: 08/27/16 13:07 Dose: 2 puff Azathioprine (Imuran Tab(*)) 75 mg PO DAILY [facility] Last Admin: 08/27/16 08:29 Dose: 75 mg Benztropine Mesylate (Cogentin Tab*) 1 mg PO BEDTIME [facility] Last Admin: 08/26/16 20:15 Dose: 1 mg Bupropion HCl (Bupropion Xl*) 300 mg PO DAILY [facility] Last Admin: 08/27/16 08:30 Dose: 300 mg Gabapentin (Neurontin Cap(*)) 300 mg PO TID [facility] Last Admin: 08/27/16 13:07 Dose: 300 mg Ibuprofen (Motrin Tab*) 600 mg PO Q6H PRN PRN Reason: PAIN Mometasone Furoate/Formoterol Fumar (Dulera 200/5 Mdi*) 2 puff INH BID [facility] Last Admin: 08/27/16 09:16 Dose: Not Given Multivitamins (Theragran Tab*) 1 tab PO DAILY [facility] Last Admin: 08/27/16 08:29 Dose: 1 tab Paroxetine HCl (Paxil Tab*) 40 mg PO DAILY [facility] Last Admin: 08/27/16 08:30 Dose: 40 mg Risperidone (Risperdal*) 3 mg PO BEDTIME [facility] Last Admin: 08/26/16 20:14 Dose: 3 mg - Discharge Plan Discharge Plan: Outpatient Follow Up Outpatient Program: [facility]
[2016-08-27] MEDS: Ibuprofen TAB* 600 MG PO PRN (19:07)
[2016-08-27] MEDS: risperiDONE TAB* 3 MG PO SCH (21:00)
[2016-08-27] MEDS: Benztropine TAB* 1 MG PO SCH (21:01)
[2016-08-28 07:55] VITALS: BP 132/65
[2016-08-28] MEDS: BuPROPion XL* 300 MG TAB.XL PO SCH (08:46)
[2016-08-28] MEDS: Gabapentin CAP(*) 300 MG PO SCH ×2 (08:47→14:10)
[2016-08-28] MEDS: Vitamin THERAPEUTIC TAB PO SCH (08:47)
[2016-08-28] MEDS: PARoxetine HCL TAB* 40 MG PO SCH (08:47)
[2016-08-28] MEDS: Ibuprofen TAB* 600 MG PO PRN (08:48)
[2016-08-28] MEDS: Mometasone/Formoter 200/5 MDI INH SCH (08:48)
[2016-08-28] MEDS: azaTHIOprine TAB(*) 50 MG TAB PO SCH (08:48)
--- NOTE | 2016-08-28 16:18 | DS ---
Subjective - Subjective Service Types: [id number] [facility] Day Mgmt simple under 30 min Subjective: Patient reports another day with no AH/VH. Patient reports no daytime sedation associated with Risperdal now. She reports Cogentin at night relieved her neck and forehead tightness. Patient reports desire to stay med compliant. She expresses insight into who the commanding male voice likely is, her step dad. Patient reports she feels the young girl crying at her feet was herself. Patient reports good benefit from the groups and is happy with the therapeutic gains from this admission. Patient is focused on her new DBT group starting soon and is more engaged in her outpt MHC. Patient denies SI/HI. Objective - Appearance Appearance: Well Developed/Nourished Dysmorphic Features: No Hygiene: Normal Grooming: Fairly Well Kept - Behavior Psychomotor Activities: Normal Exhibits Abnormal Movement: No - Attitude and Relatedness Attitude and Relatedness: Cooperative Eye Contact: Good - Speech Quality: Unpressured Latencies: Normal Quantity: Appropriate - Mood Patient's Decription of Mood: "Good" - Affect Observed Affect: Good Affect Consistent with: Euthymia - Thought Process Patient's Thought Process: Coherent Thought Content: No Passive Wish, No Suicidal Planning, No Homicidal Ideation, No Paranoid Ideation - Sensorium Experiencing Hallucinations: No, Sensorium is Clear Type of Hallucinations: Visual: Yes, Auditory: Yes, Command: Yes - Level of Consciousness Level of Consciousness: Alert Orientation: Yes Intact, Yes Orientated to Time, Yes Orientated to Place, Yes Orientated to Person - Impulse Control Impulse Control: Intact - Insight and Judgement Insight and Judgement: Fair - Group Participation Particating in Group Activities: Yes - Medication Management Medication Management Adherence: Yes Treatment Course & Assessment Clinical Course & Impression: Hospital Course: 46yo female patient with recurrence of intense and distressing commanding AHs and new VHs x 2wks. Patient cut her face multiple times with a razor at the command of the male voice she hears. Patient has recent stressors including the loss of 2 family members, one by suicide, and the loss of her job 2 weeks ago. Patient amenable to med modification and has been med compliant on the unit. Risperdal initiated for hallucinations at 1mg po qhs. This was uptitrated slowly to 3mg po qhs. Patient quickly began reporting no AH/VHs since 2mg qhs dose started. Patient noted more then to be visile in the milieu and social. Patient reported neck stiffness and forehead stiffness, alleviated by Cogentin 1mg po qhs. On day of discharge, Judy was psychiatrically stable. She reported her father will transport her to his home where she will stay a few days. Pertinent Labs: Laboratory Tests 08/21/16 08/21/16 08/21/16 14:00 14:01 14:49 WBC 7.7 RBC 4.62 Hgb 12.7 Hct 39 MCV 84 MCH 27 MCHC 33 RDW 15 Plt Count 234 MPV 9 Neut % (Auto) 80.8 Lymph % (Auto) 13.5 L [place] % (Auto) 3.7 Eos % (Auto) 1.7 Baso % (Auto) 0.3 Absolute Neuts (auto) 6.2 Absolute Lymphs (auto) 1.0 Absolute Monos (auto) 0.3 Absolute Eos (auto) 0.1 Absolute Basos (auto) 0 Absolute Nucleated RBC 0 Nucleated RBC % 0 Sodium Potassium Chloride Carbon Dioxide Anion Gap BUN Creatinine Est GFR ( Amer) Est GFR (Non-Af Amer) BUN/Creatinine Ratio Glucose Calcium Total Bilirubin AST ALT Alkaline Phosphatase Total Protein Albumin Globulin Albumin/Globulin Ratio Triglycerides Cholesterol LDL Cholesterol HDL Cholesterol TSH Urine Color Yellow Urine Appearance Clear Urine pH 5.0 Ur Specific [place] 1.010 Urine Protein Negative Urine Ketones Negative Urine Blood Negative Urine Nitrate Negative Urine Bilirubin Negative Urine Urobilinogen Negative Ur Leukocyte Esterase 1+ H Urine WBC (Auto) Trace(0-5/hpf) Urine RBC (Auto) Absent Ur Squamous Epith Cells Present H Urine Bacteria Absent Urine Glucose Negative Urine Ascorbic Acid * H Salicylates Urine Opiates Screen None detected Acetaminophen Ur Barbiturates Screen None detected Ur Phencyclidine Scrn None detected Ur Amphetamines Screen None detected U Benzodiazepines Scrn None detected Urine Cocaine Screen None detected U Cannabinoids Screen None detected Serum Alcohol 08/21/16 08/23/16 14:49 07:37 WBC RBC Hgb Hct MCV MCH MCHC RDW Plt Count MPV Neut % (Auto) Lymph % (Auto) [place] % (Auto) Eos % (Auto) Baso % (Auto) Absolute Neuts (auto) Absolute Lymphs (auto) Absolute Monos (auto) Absolute Eos (auto) Absolute Basos (auto) Absolute Nucleated RBC Nucleated RBC % Sodium 137 137 Potassium 3.1 L 4.1 Chloride 101 101 Carbon Dioxide 28 31 Anion Gap 8 5 BUN 9 13 Creatinine 0.82 0.87 Est GFR ( Amer) 97.0 90.6 Est GFR (Non-Af Amer) 75.4 70.4 BUN/Creatinine Ratio 11.0 14.9 Glucose 127 H 97 Calcium 9.1 9.4 Total Bilirubin 0.30 AST 13 ALT 8 Alkaline Phosphatase 82 Total Protein 7.2 Albumin 4.2 Globulin 3.0 Albumin/Globulin Ratio 1.4 Triglycerides 196 Cholesterol 212 LDL Cholesterol 130 HDL Cholesterol 42.6 TSH 0.56 Urine Color Urine Appearance Urine pH Ur Specific [place] Urine Protein Urine Ketones Urine Blood Urine Nitrate Urine Bilirubin Urine Urobilinogen Ur Leukocyte Esterase Urine WBC (Auto) Urine RBC (Auto) Ur Squamous Epith Cells Urine Bacteria Urine Glucose Urine Ascorbic Acid Salicylates < 2.50 Urine Opiates Screen Acetaminophen < 15 Ur Barbiturates Screen Ur Phencyclidine Scrn Ur Amphetamines Screen U Benzodiazepines Scrn Urine Cocaine Screen U Cannabinoids Screen Serum Alcohol < 10 Consultants: NONE Discharge Meds: Home Medications Medication Instructions Recorded Confirmed Type Albuterol Sulfate [Ventolin Hfa] 2 puff INH Q4H PRN 07/24/12 08/24/16 History azaTHIOprine TAB(*) [Imuran TAB(*)] 75 mg PO QAM 07/24/12 08/24/16 History Symbicort 160/4.5 (NF) 2 puff INH DAILY 08/23/16 08/23/16 History Benztropine TAB* [Cogentin TAB*] 1 mg PO BEDTIME #30 tab 08/28/16 Rx BuPROPion XL* [Bupropion XL*] 300 mg PO DAILY #30 08/28/16 Rx PARoxetine HCL TAB* [Paxil TAB*] 40 mg PO DAILY #120 08/28/16 Rx risperiDONE TAB* [Risperdal*] 3 mg PO BEDTIME #30 tab 08/28/16 Rx Follow-up Appts: Patient to start DBT group at [facility] on 09/11/16. SW to schedule f/u appt with PCP and MH provider for within 2 weeks of discharge. Clear for Discharge: Adequate Clinical Respons, Acceptable Safety Profile Inpatient DSM-IV Dx: . 1. Brief psychotic d/o with marked stressors. 2. Persistent Depressive d/o with atypical features. 3. Borderline personality d/o Discharge Planning - Discharge Planning Discharge Plan: Outpatient Follow Up Outpatient Program: [facility] Recommendations for Continuing Care: Psychotherapy Medications: Current Medications Albuterol (Ventolin Hfa Inhaler*) 2 puff INH Q4H PRN PRN Reason: WHEEZING/SOB Last Admin: 08/27/16 13:07 Dose: 2 puff Azathioprine (Imuran Tab(*)) 75 mg PO DAILY [facility] Last Admin: 08/28/16 08:48 Dose: 75 mg Benztropine Mesylate (Cogentin Tab*) 1 mg PO BEDTIME [facility] Last Admin: 08/27/16 21:01 Dose: 1 mg Bupropion HCl (Bupropion Xl*) 300 mg PO DAILY [facility] Last Admin: 08/28/16 08:46 Dose: 300 mg Gabapentin (Neurontin Cap(*)) 300 mg PO TID [facility] Last Admin: 08/28/16 14:10 Dose: 300 mg Mometasone Furoate/Formoterol Fumar (Dulera 200/5 Mdi*) 2 puff INH BID [facility] Last Admin: 08/28/16 08:48 Dose: 2 puff Multivitamins (Theragran Tab*) 1 tab PO DAILY [facility] Last Admin: 08/28/16 08:47 Dose: 1 tab Paroxetine HCl (Paxil Tab*) 40 mg PO DAILY [facility] Last Admin: 08/28/16 08:47 Dose: 40 mg Risperidone (Risperdal*) 3 mg PO BEDTIME [facility] Last Admin: 08/27/16 21:00 Dose: 3 mg Discharge Planning: Prescriptions provided for discharge [x] Yes [] No Follow up care details as per social work arrangements. Patient response to discharge plan: [] eager for discharge [x] agreeable with discharge plan [] ambivalent about discharge [] disagrees with discharge today
== END 2016-08-28 17:30 | disposition home or self-care (01) | DRG 751 ==
LOC: ED 13:33 → BSU 16:40
PROVIDERS: ADMIT Psychiatry & Neurology Psychiatry; ATTEND Psychiatry & Neurology Psychiatry
DX: F23 Brief psychotic disorder (principal); M41.9 Scoliosis, unspecified; F32.89 Other specified depressive episodes; F60.3 Borderline personality disorder; Z62.810 Personal history of physical and sexual abuse in childhood; J45.909 Unspecified asthma, uncomplicated; N91.1 Secondary amenorrhea; Z88.0 Allergy status to penicillin; Z81.8 Family history of other mental and behavioral disorders
CPT/HCPCS: 36415; 80048; 80053; 80061; 80307; 80320; 80329; 81003; 81015; 84443; 85025; 87086; 90853; 99222; 99231; A9270-GY; G0480; J7500

== ENCOUNTER 2018-03-18 16:05 | Emergency (ER) | payer OTHER ==
[2018-03-18] MEDS ORDERED: Albuterol/Ipratropium NEB.SOL* Albuterol 2.5 MG/Ipratropium 0.5 MG 3 ML INH ONE (18:58)
[2018-03-18] MEDS ORDERED: methylPREDNISolone 125 MG* 2 ML VIAL IV ONE (18:58)
--- NOTE | 2018-03-18 19:21 | ED ---
Respiratory - HPI Summary HPI Summary: 47-year-old female presents with shortness breath for the past 10 days. States she has a history of asthma. States she's been having a productive cough. No nausea or vomiting. States she's had all chest pain on left side of her ribs today. States it hurts when she takes deep breath in. She denies any sore throat or sinus congestion. She denies any headache. She has been taking her inhaler and symbicort. She denies any pain or swelling in her calf muscles. She denies any fevers. She is nonsmoker. - History of Current Complaint Chief Complaint: EDGeneral Stated Complaint: FLU LIKE SYMPTOMS Time Seen by Provider: 03/18/18 18:52 Pain Intensity: 8 - Allergy/Home Medications Allergies/Adverse Reactions: Allergies Allergy/AdvReac Type Severity Reaction Status Date / Time Penicillins Allergy Hives Verified 03/18/18 16:17 Home Medications: Home Medications Albuterol Sulfate [Ventolin Hfa] 18 gm IH Q4HR PRN 03/18/18 [History Confirmed 03/18/18] Budesonide/Formote 160/4.5(NF) [Symbicort 160/4.5 (NF)] 2 puff INH BID 03/18/18 [History Confirmed 03/18/18] Bupropion XL* [Wellbutrin XL *] 150 mg PO DAILY 03/18/18 [History Confirmed 11/26] Gabapentin 300 mg PO BID 03/18/18 [History Confirmed 03/18/18] PMH/Surg Hx/FS Hx/Imm Hx Endocrine/Hematology History: Reports: Other Endocrine/Hematological Disorders - Hx beningn pituitary tumor 2000 Denies: Hx Anticoagulant Therapy, Hx Diabetes, Hx Thyroid Disease, Hx Anemia Cardiovascular History: Reports: Hx Hypercholesterolemia Denies: Hx Hypertension, Hx Pacemaker/ICD Respiratory History: Reports: Hx Asthma Denies: Hx Chronic Obstructive Pulmonary Disease (COPD), Hx Pneumonia, Hx Pulmonary Embolism GI History: Reports: Other GI Disorders - UC in remission per patient Denies: Hx Crohn's Disease, Hx Diverticulosis, Hx Irritable Bowel History: Denies: Hx Kidney Stones, Hx Renal Disease Musculoskeletal History: Reports: Hx Arthritis, Hx Osteoporosis, Other Musculoskeletal History - sciatic Denies: Hx Scoliosis Sensory History: Denies: Hx Contacts or Glasses, Hx Hearing Aid Opthamlomology History: Denies: Hx Contacts or Glasses Neurological History: Reports: Hx Headaches - does not occur often, Other Neuro Impairments/Disorders - 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 2000 PITUATARY GLAND MASS REMOVED . 07/2012 LEFT SHOULDER SURGERY Hx Anesthesia Reactions: No Infectious Disease History: No Infectious Disease History: Denies: Hx Hepatitis, Hx Human Immunodeficiency Virus (HIV), Traveled Outside the [place] in Last 30 Days - Family History Known Family History: Positive: None, Other - "my aunt committed suicide" - Social History Alcohol Use: None Hx Substance Use: No Substance Use Type: Reports: None Hx Tobacco Use: No Smoking Status (MU): Never Smoked Tobacco Review of Systems Negative: Fever Positive: Chest Pain Positive: Shortness Of Breath, Cough All Other Systems Reviewed And Are Negative: Yes Physical Exam Triage Information Reviewed: Yes Vital Signs On Initial Exam: Initial Vitals Temp Pulse Resp BP Pulse Ox 98.1 F 140 16 140/81 97 03/18/18 16:11 03/18/18 16:11 03/18/18 16:11 03/18/18 16:11 03/18/18 16:11 Vital Signs Reviewed: Yes Appearance: Positive: Well-Appearing Skin: Positive: Warm, Dry Head/Face: Positive: Normal Head/Face Inspection Eyes: Positive: Normal, EOMI, JESSICA, Conjunctiva Clear ENT: Positive: Normal ENT inspection, Pharynx normal, TMs normal Neck: Positive: Supple, Nontender, No Lymphadenopathy Respiratory/Lung Sounds: Positive: Breath Sounds Present, Wheezes Cardiovascular: Positive: Normal, RRR Abdomen Description: Positive: Nontender, Soft Bowel Sounds: Positive: Present Musculoskeletal: Positive: Normal Neurological: Positive: Normal Psychiatric: Positive: Normal Diagnostics - Vital Signs Vital Signs Temp Pulse Resp BP Pulse Ox 03/18/18 18:24 97.4 F 118 18 127/89 97 03/18/18 16:11 98.1 F 140 16 140/81 97 - Laboratory Result Diagrams: 03/18/18 18:20 03/18/18 18:20 Lab Statement: Any lab studies that have been ordered have been reviewed, and results considered in the medical decision making process. - Radiology chest Radiology Interpretation Completed By: Radiologist Summary of Radiographic Findings: IMPRESSION: #. Stigmata of potential obstructive lung disease. No acute pulmonary or cardiac process. evident. - EKG No standard instances Cardiac Rate: Tachycardia EKG Rhythm: Sinus Tachycardia Summary of EKG Findings: sinus tachycardia Re-Evaluation - Re-Evaluation First Eval Re-Evaluation Time: 20:11 Change: Improved Comment: feeling better, patient states just feels anxious Second Eval Re-Evaluation Time: 20:46 Change: Improved Comment: feeling better after ativan Disposition - Course Course Of Treatment: 47-year-old female presents with shortness breath for the past 10 days. States she has a history of asthma. States she's been having a productive cough. No nausea or vomiting. States she's had all chest pain on left side of her ribs today. States it hurts when she takes deep breath in. She denies any sore throat or sinus congestion. She denies any headache. She has been taking her inhaler and symbicort. She denies any pain or swelling in her calf muscles. She denies any fevers. She is nonsmoker. on exam wheezing noted. chest xray normal. gave breathing treatment and feeling better. lactic elevated so gave fluids. ekg sinus tachycardia. wbc normal. troponin zero. d- dimer normal. gave ativan and steriod and feeling better. will prescribe steriod and robitussin with codeine. told to follow up with primary. patient understand and agrees with plan. - Differential Dx - Cardiopulmonary Differential Diagnoses - Cardiopulmonary: Bronchitis, Influenza, Lower Resp Infection - Diagnoses Provider Diagnoses: Bronchitis Discharge - Sign-Out/Discharge Documenting (check all that apply): Patient Departure - Discharge Plan Condition: Good Disposition: HOME Prescriptions: Albuterol 2.5MG/3ML (0.083%)* [Ventolin 2.5 MG/3 ML NEB.MOHAN*] 2.5 mg INH Q6H # 20 neb.mohan guaiFENesin/CODIEN 100MG-10MG* [Robitussin AC 100Mg-10Mg*] 5 ml PO Q6H PRN #100 udc MDD 20ml PRN Reason: Cough predniSONE TAB* [Deltasone TAB*] 50 mg PO DAILY #4 tab Patient Education Materials: Acute Bronchitis (ED) Referrals: Uriel Montejo MD [Primary Care Provider] - Additional Instructions: Take cough medication 5ml (1 teaspoon) every 6 hours as needed cough Use inhaler up to two puffs every 4-6 hours for cough Take steroid once a day starting tomorrow Take Tylenol or ibuprofen for pain every 6 hours Follow up with primary within 5 days Return to ED if develop any new or worsening symptoms - Billing Disposition and Condition Condition: GOOD Disposition: Home
[2018-03-18 19:23] LABS: ABS Basophils 0 10^3/ul (0-0.2); ABS Eosinophils 0 10^3/ul (0-0.6); ABS Lymphocytes 0.4 10^3/ul (1.0-4.8); ABS Monocytes 0.2 10^3/ul (0-0.8); ABS Neutrophils 5.8 10^3/ul (1.5-7.7); ABS Nucleated RBC 0 10^3/ul; Eosinophil % 0.1 %; Hematocrit 35 % (35-47); Hemoglobin 11.8 g/dl (12.0-16.0); Lymphocyte % 6.8 %; Mean Corpuscular HGB Conc 34 g/dl (31-36); Mean Corpuscular Hemoglobin 30 pg (27-31); Mean Corpuscular Volume 88 fL (80-97); Mean Platelet Volume 7.8 fL (7.4-10.4); Nucleated Red Blood Cells % 0.1; Platelet Count 347 10^3/ul (150-450); Red Blood Count 3.98 10^6/ul (4.00-5.40); Red Cell Distribution Width 18 % (10.5-15); White Blood Count 6.5 10^3/ul (3.5-10.8)
[2018-03-18] MEDS ORDERED: NS 0.9% 1000 ML* 1,000 ML IV ONE (19:44)
[2018-03-18 19:45] LABS: HCG Pregnancy < 0.60 mIU/mL
[2018-03-18 19:46] LABS: ALT 11 U/L (7-52); AST 13 U/L (13-39); Albumin 4.5 g/dL (3.2-5.2); Albumin/Globulin Ratio 1.5 (1-3); Alkaline Phosphatase 87 U/L (34-104); Anion Gap 10 mmol/L (2-11); BUN/Creatinine Ratio 11.8 (8-20); Blood Urea Nitrogen 9 mg/dL (6-24); CO2 Carbon Dioxide 26 mmol/L (22-32); Calcium 9.8 mg/dL (8.6-10.3); Chloride 100 mmol/L (101-111); EGFR Non-African American 81.9 (>60); Globulin 3.1 g/dL (2-4); Glucose 120 mg/dL (70-100); Potassium 3.4 mmol/L (3.5-5.0); Sodium 136 mmol/L (135-145); Total Protein 7.6 g/dL (6.4-8.9)
[2018-03-18] MEDS ORDERED: LORazepam INJ* 2 MG/ML 1 ML VIAL IV PUSH ONE (19:59)
[2018-03-18] MEDS ORDERED: Ketorolac INJ* 30 MG/ML 1 ML VIAL IV PUSH ONE (19:59)
[2018-03-18] MEDS ORDERED: A lbuterol Hfa (PREPAK) 1 MDI - ED TAKE HOME DISPENSING ONLY INHH ONE (20:40)
[2018-03-18] MEDS ORDERED: guaiFENesin/CODIEN 100MG-10MG* 5 ML UDC PO ONE (20:40)
[2018-03-18] MEDS ORDERED: Albuterol HFA INHALER* 8 gm MDI INH ONE ×2 (20:56→20:58)
[2018-03-18 21:05] VITALS: BP 130/79
== END 2018-03-18 21:04 | disposition home or self-care (01) ==
LOC: ED 16:05
DX: J40 Bronchitis, not specified as acute or chronic (principal); Z88.0 Allergy status to penicillin; E78.00 Pure hypercholesterolemia, unspecified; J45.909 Unspecified asthma, uncomplicated; M81.0 Age-related osteoporosis without current pathological fracture; M54.9 Dorsalgia, unspecified; R00.0 Tachycardia, unspecified
CPT/HCPCS: 36415; 71046; 80053; 83605; 83735; 83880; 84484; 84702; 85025; 85379; 93005; 96361; 96374; 96375; 99284; A9270-GY; J1885; J2060; J2930

== ENCOUNTER 2023-11-09 02:46 | Inpatient (IN) ==
[2023-11-09] MEDS: Tetan/Diph/Pertus SYR(Tdap) 0.5 ML SYR(BOOSTRIX) use SYR contains LATEX IM ONE (04:30)
[2023-11-09] MEDS: Bacitracin OINTMENT TUBE TOPICAL ONE (04:30)
[2023-11-09 04:33] LABS: ABS Eosinophils 0.3 10^3/uL (0.0-0.5); ABS Monocytes 0.4 10^3/uL (0.0-0.9); ABS Neutrophils 3.8 10^3/uL (1.5-7.6); Eosinophil % 5.1 %; Hematocrit 36.9 % (35-45); Hemoglobin 12.6 g/dL (11.5-14.3); Lymphocyte % 30.2 %; Mean Corpuscular Hemoglobin 29.7 pg (27-33); Mean Corpuscular Hgb Conc 34.2 g/dL (31-36); Mean Corpuscular Volume 86.8 fL (80-97); Mean Platelet Volume 7.8 fL (7.5-11.2); Platelet Count 274 10^3/uL (150-450); Red Blood Count 4.26 10^6/uL (3.63-4.92); Red Cell Distribution Width 15.6 % (12-17); White Blood Count 6.6 10^3/uL (3.8-11.8)
[2023-11-09 04:40] LABS: Urine Appearance Clear; Urine Bilirubin Negative (Negative); Urine Blood Negative (Negative); Urine Color Yellow; Urine Glucose Negative (Negative); Urine Ketones Negative (Negative); Urine Nitrite Negative (Negative); Urine Protein Negative (Negative); Urine Specific Gravity 1.014 (1.002-1.030); Urine Urobilinogen Negative (Negative); Urine pH 5.5 (5.0-8.0)
[2023-11-09 04:44] LABS: Urine Bacteria 1+ /HPF (Absent); Urine Red Blood Cell Trace(0-2/hpf) /HPF (0-Trace); Urine Squamous Epithelial Cell Present /HPF (Absent); Urine White Blood Cell Trace(0-5/hpf) /HPF (0-Trace)
[2023-11-09 04:58] LABS: ALT 11 U/L (7-52); AST 17 U/L (13-39); Acetaminophen < 15 mcg/mL; Albumin 4.3 g/dL (3.2-5.2); Albumin/Globulin Ratio 1.5 (1-3); Alcohol, S < 13 mg/dL (<13); Alkaline Phosphatase 90 U/L (35-149); Anion Gap 4 mmol/L (2-16); Blood Urea Nitrogen 10 mg/dL (6-24); CO2 Carbon Dioxide 32 mmol/L (22-32); Calcium 9.5 mg/dL (8.6-10.3); Chloride 99 mmol/L (101-111); Creatinine, Serum 0.71 mg/dL (0.51-0.95); Globulin 2.9 g/dL (2-4); Glucose 108 mg/dL (70-100); Salicylate < 2.50 mg/dL (<30); Sodium 135 mmol/L (135-145); Total Bilirubin 0.5 mg/dL (0.2-1.0); Total Protein 7.2 g/dL (6.4-8.9); eGFR CKD-EPI 102.2 (>60)
[2023-11-09 05:04] LABS: Urine Benzodiazepine Screen Presumptive Positive (None Detect); Urine Cannabinoids Screen None Detected (None Detect); Urine Opiates Screen Presumptive Positive (None Detect)
[2023-11-09 05:13] LABS: TSH Ultra Thyroid Stim Horm 0.34 mcIU/mL (0.34-5.60)
[2023-11-09] MEDS: BALSALAZIDE 750 MG PO ONE (12:03)
[2023-11-09] MEDS: BALSALAZIDE 750 MG PO SCH (22:30)
[2023-11-09] MEDS: Permethrin 1% LOTION 59 ML BTL TOPICAL ONE (22:30)
[2023-11-09 23:48] VITALS: BP 0/0
[2023-11-10 08:24] LABS: HDL Cholesterol 49.1 mg/dL
[2023-11-10] MEDS ORDERED: Albuterol 2.5mg/3 ml (0.083%) NEB.SOLN INH PRN (16:04)
[2023-11-10] MEDS ORDERED: Albuterol HFA INHALER 8 gm MDI INH PRN (16:10)
[2023-11-10] MEDS: CIPRO HC LEFT EAR SCH (19:46)
[2023-11-10] MEDS: Ciproflox/Dexameth OTIC.SUSP 7.5 ML BTL LEFT EAR SCH (19:46)
[2023-11-10] MEDS: Permethrin 1% LOTION 59 ML BTL TOPICAL ONE (20:12)
[2023-11-12] MEDS ORDERED: Permethrin 1% LOTION 59 ML BTL TOPICAL ONE (12:34)
[2023-11-12] MEDS ORDERED: [UNRECOGNIZED DRUG - OTHER] TOPICAL SCH (13:00)
== END 2023-11-12 12:55 | disposition home or self-care (01) | DRG 881 ==
LOC: ED 02:46 → EDHOLD 15:12 → BSU 15:43
PROVIDERS: ADMIT Psychiatry & Neurology Psychiatry; ATTEND Student in an Organized Health Care Education/Training Program